=== PATIENT | female | born 2000 | race Caucasian/White ===

== ENCOUNTER 2024-05-03 10:18 | Outpatient (REF) | payer BC, SELFPAY ==
--- NOTE | 2024-05-03 09:20 | PAPFT_PTH ---
PATIENT: Maida Diallo LOC: [facility] U#:[id number] AGE/SX: 23/F ROOM: RE05/03/[address]: Samantha Guevara NP : 2000 BED: DIS: 05/03/2024 SPEC #: [id number] RECD: 05/03/24 13:13 STATUS: RUBIO REQ #: [id number] CONNOR: 05/03/24 09:[address]: Samantha Guevara NP DEPT: FOR[facility], [facility]–1983 Cytology RECD BY: Erica Major ENTERED: 05/03/24 13:13 SP TYPE: PAPFT OTHR DR: John Becerra NP Tissues: 1 - CX/ENDOCX FOR PAP SMEARS Procedures: PAP THIN PREP/[facility] Screening Comments: [id number]
== END 2024-05-03 10:19 | disposition home or self-care (01) ==
LOC: LBN 10:18
PROVIDERS: PCP Nurse Practitioner Family; Visit Provider Nurse Practitioner Women's Health
DX: Z12.4 Encounter for screening for malignant neoplasm of cervix (principal)
CPT/HCPCS: 88142

== ENCOUNTER 2024-10-27 17:06 | Emergency (ER) | payer BC, SELFPAY ==
[2024-10-27 17:10] VITALS: BP 143/81; PULSE 106; RESP 20; TEMP 37.1; O2SAT 99
--- NOTE | 2024-10-27 17:15 | DI.RAD_ITS ---
Exam(s) XR FINGER LT INDEX EXAM: XR FINGER LT INDEX CLINICAL HISTORY: crush injury L 2nd finger and metacarpal. TECHNIQUE: 2D digital imaging was performed. COMPARISON: No exams were available for comparison FINDINGS: 3 views There is a longtitudinal nondisplaced fracture line through the length the distal phalanx of the 2nd- index finger which extends from the tuft to the level of the distal interphalangeal joint. there is no step at the joint surface. However, the fracture line neck appears to extend into the head of the adjacent middle phalanx, also nondisplaced. No radiopaque foreign bodies. No gas in the soft tissues. No osseous lesions. IMPRESSION: Nondisplaced longitudinal fracture in the distal phalanx of the 2nd-index finger. Similar finding in the adjacent head of the middle phalanx. There is no dislocation or subluxation of the DIP joint. DATA REPOSITORY: RADIATION DOSE DELIVERED:
--- NOTE | 2024-10-27 17:22 | W.ED.GENAD ---
Discharge Plan Disposition Patient Disposition: Home Condition: Stable Discharge Details Clinical Impression: Finger fracture, left Primary Care Provider: Francisco Cabrera ED Provider: Carlene Bobby Home Meds and New Rx's Prescriptions: No Action No Known Home Meds Discharge Instructions Instructions: Finger Fracture ED, Splint Care ED Additional Instructions: Take Tylenol and/or Motrin as needed for pain. Wear splint. You may ice the area for 20 minutes at a time. Follow-up with orthopedics. Referrals: ASHLI Downing [RN FOR [facility] [place]] - 3 days Discharge Data Discharge Physician: Carlene Bobby HPI General Date/Time Provider Initiated Documentation: 10/27/24 17:14. HPI Narrative: 23-year-old right handed female presents for evaluation of left second finger injury. Patient was working on a 4 peña when she heard her left second finger. She has pain and bruising throughout the finger and into her hand. She is able to fully range the finger. No numbness or tingling. She took Tylenol and Motrin prior to arrival. Related Data Home Medications ?Medication ?Instructions ?Recorded ?Confirmed Unknown [No Known Home Meds] 03/30/24 10/27/24 Allergies Allergy/AdvReac Type Severity Reaction Status Date / Time adhesive Allergy Mild Skin Rash Verified 10/27/24 17:13 pineapple Allergy Mild Swelling/Ed Verified 10/27/24 17:13 robert bee stings Allergy Intermediate Swelling/Ed Uncoded 10/27/24 17:13 robert Chlorine Allergy Mild Skin Rash Uncoded 10/27/24 17:13 dandelions Allergy Mild Swelling/Ed Uncoded 10/27/24 17:13 robert General Stated Complaint: Orthopedic COLLEEN: 4 Review of Systems Narrative: Remainder of review of systems otherwise negative except for as noted in the HPI x 5. Exam Narrative Exam Narrative: General: non-toxic, no respiratory distress, comfortable HEENT: normocephalic, atraumatic, lids and lashes normal, PERRL, EOMI, anicteric sclera, no conjunctival injection, moist oral mucosa Musculoskeletal: Diffuse erythema and mild swelling to left second finger, black nail armenian in place, full strength to flexion and extension at DIP, PIP, MCP, bruising noted just below MCP, 2+ radial pulses, otherwise full range of motion of arms and legs, no tenderness to palpation. no clubbing, cyanosis, or edema Neurologic: appropriate for age, strength normal Psych: alert and oriented Skin: As above, otherwise no petechiae, no lesions, warm and dry Course Vital Signs Vital signs: Vital Signs Temperature 37.1 C 10/27/24 17:10 Pulse 106 H 10/27/24 17:10 Respiratory Rate 20 10/27/24 17:10 Blood Pressure 143/81 H 10/27/24 17:10 Pulse Oximetry 99 10/27/24 17:10 Temperature 37.1 C 10/27/24 17:10 Pulse 106 H 10/27/24 17:10 Respiratory Rate 20 10/27/24 17:10 Blood Pressure 143/81 H 10/27/24 17:10 Blood Pressure Position Sitting 10/27/24 17:10 Pulse Oximetry 99 10/27/24 17:10 Oxygen Delivery Method Room Air 10/27/24 17:10 Oxygen Flow Rate 0 10/27/24 17:10 Medical Decision Making 23-year-old left-handed female presents for evaluation of crush injury to left second finger. At time my evaluation she is neurologically intact. She has full strength to flexion and extension. Will check x-ray. Will remove nail armenian to check for subungual hematoma. After removal of nail armenian patient does not have any significant Paz. X-ray was obtained and positive for fracture. Patient placed in a baseball splint. She will follow-up with orthopedics. She understands indications to return. Quality:SDOH Health Related Social Needs: Health related social needs details None PFSH All Active Problems (Updated 10/27/24 @ 18:15 by Carlene Bobby MD) Finger fracture, left (Acute) Anxiety (Chronic) Medical History Varicella (~2001) infant, 1,000 grams-1,249 grams, 25-26 completed weeks of gestation Born at 26 5/7 weeks, 2.11lbs Surgical History Hx laparoscopic cholecystectomy (~2016) Family History Father Adopted Alcohol use disorder Depression Brother No problems noted. Maternal Grandfather Asthma Paternal Grandfather No problems noted. 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 Sexually active: Yes Do you think of yourself as: lesbian/feng/homosexual Current gender identity: female What is your relationship status?: never How often do you talk on the phone with friends or family?: three or more times per week How often do you get together with friends or relatives?: three or more times per week How often do you attend jew or buddhist services?: decline to answer Do you belong to any clubs or organized social groups?: no Panel score (0-1 are the most socially isolated patients): 1 What type of physical activity do you participate in: none Frequency: does not exercise Cassy/Protestant: Corey Special cassy needs: No Seatbelt use: always Helmet use: Yes Helmet use: always Drive intox or ride w/intox 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: No Have you ever Experienced Withdrawal Seizures?: No Have you ever Experienced Delirium Tremens(DT)s?: No Have you ever undergone Alcohol Rehabilitation Treatment (i.e, inpt ot outpatient treatment programs)?: No Have you ever Experienced Blackouts?: No Have you ever Combined Alcohol with other Downers within the last 90 days?: No Have you ever Combined Alcohol with any other Substance of Abuse during the last 90 days?: No Positive Blood Alcohol level on Presentation? [PCS.BAL]: No Evidence of Increased Autonomic Activity (i.e. HR>120, tremor, sweating, agitation, nausea)?: No Result: 0
== END 2024-10-27 18:41 | disposition home or self-care (01) ==
PROVIDERS: Emergency Provider Emergency Medicine Emergency Medical Services; PCP Nurse Practitioner Family
DX: S62.661A Nondisplaced fracture of distal phalanx of left index finger, initial encounter for closed fracture (principal); W27.8XXA Contact with other nonpowered hand tool, initial encounter; Y93.89 Activity, other specified; Y92.414 Local residential or business street as the place of occurrence of the external cause
CPT/HCPCS: 99283; 73140

== ENCOUNTER 2024-11-02 11:15 | Outpatient (CLI) | payer BC, SELFPAY ==
--- NOTE | 2024-11-02 09:30 | DI.RAD_ITS ---
Exam(s) XR FINGER LT INDEX EXAM: XR FINGER LT INDEX INDICATION: left index finger fx. COMPARISON: CR XR FINGER LT INDEX from 10/27/2024 TECHNIQUE: 2D digital imaging was performed. Two views. FINDINGS: Stable alignment of nondisplaced distal phalangeal fracture. No new abnormalities. DATA REPOSITORY: RADIATION DOSE DELIVERED:
== END 2024-11-02 11:16 | disposition home or self-care (01) ==
LOC: DIORS 11:16
PROVIDERS: PCP Nurse Practitioner Family; Visit Provider Physician Assistant
DX: S62.609A Fracture of unspecified phalanx of unspecified finger, initial encounter for closed fracture (principal)
CPT/HCPCS: 73140

== ENCOUNTER 2025-03-31 10:58 | Outpatient (CLI) | payer BC, SELFPAY ==
[2025-03-31 14:17] LABS: HCT 40.2 % (36.0-46.0); HGB 12.9 g/dL (11.2-15.7); MCH 28.1 pg (27.0-33.0); MCHC 32.1 % (32.0-36.0); MCV 88 fL (80-95); MPV 10.4 fL (8.0-11.0); Platelet Count 301 10^3/uL (130-400); RBC 4.59 10^6/uL (3.93-5.22); RDW 12.6 % (11.7-14.6); RDW-SD 40.0 fL; WBC 8.18 10^3/uL (4.4-10.8)
[2025-03-31 14:19] LABS: ESR 27 mm/hr (0-20)
[2025-03-31 15:48] LABS: C-Reactive Protein 0.51 mg/dL (<or=0.5); TSH (W/Ref FT4) 1.09 uIU/mL (0.36-3.74)
[2025-03-31 16:22] LABS: Hemoglobin A1C 5.1 % (<5.7)
[2025-03-31 16:52] LABS: Calculated LDL 61 mg/dL (<100); Cholesterol 136 mg/dL (<200); HDL Cholesterol 58 mg/dL (>or=50); Triglyceride 89 mg/dL (<150)
== END 2025-03-31 10:59 | disposition home or self-care (01) ==
LOC: LOS 10:59
PROVIDERS: Nurse Practitioner Family; PCP Nurse Practitioner Family; Visit Provider Nurse Practitioner Family
DX: Z13.1 Encounter for screening for diabetes mellitus (principal); Z13.220 Encounter for screening for lipoid disorders; F41.9 Anxiety disorder, unspecified; M25.59 Pain in other specified joint
CPT/HCPCS: 36415; 80061; 85027; 85652; 83036; 84443; 86140

== ENCOUNTER → 2025-05-08 02:08 | Outpatient (CLI) | payer BC, SELFPAY ==
--- NOTE | 2025-05-08 06:45 | DI.RAD_ITS ---
Exam(s) XR KNEE LT 3V AP,LAT,MARIAN EXAM: XR KNEE LT 3V AP,LAT,MARIAN CLINICAL HISTORY: left knee pain,M25.562. TECHNIQUE: 2D digital imaging was performed of the left knee. Three images were obtained. DeleteAP, lateral and PA tunnel views were obtained. COMPARISON: No exams were available for comparison FINDINGS: BONES: No acute fracture is present. No bony destructive lesion is seen. JOINTS: The knee is normally aligned. No joint effusion is seen. No loose body. SOFT TISSUE: Normal. IMPRESSION: Normal radiographs of the left knee. DATA REPOSITORY: RADIATION DOSE DELIVERED:
== END ==
PROVIDERS: PCP Nurse Practitioner Family; Visit Provider Nurse Practitioner Family
DX: M25.562 Pain in left knee (principal)
CPT/HCPCS: 73562